=== PATIENT | female | born 1980 | race Caucasian/White ===

== ENCOUNTER 2023-09-26 16:43 | Emergency (ER) | payer OTHER ==
--- NOTE | 2023-09-26 16:48 | ED ---
General Adult HPI - General Stated complaint: right foot pain Time Seen by Provider: 09/26/23 16:47 Source: RN notes reviewed - History of Present Illness Initial comments: 43-year-old female who presents emergency Department with chief complaint of right foot pain she reports right foot pain for 1 day. She denies any known injury or trauma. She reports that can to the touch. Denies any injury or trauma. She also endorses she is residing and [place]. Is not concerned for his symptoms. Denies any known fevers, chills, numbness, tingling, weakness in the extremity. - Related Data Previous Rx's Medication Instructions Recorded Cephalexin [Keflex] 500 mg PO Q8HR 7 Days #21 cap 09/26/23 Allergies Allergy/AdvReac Type Severity Reaction Status Date / Time prochlorperazine Allergy Anaphylaxis Verified 09/26/23 17:11 [From Compazine] Review of Systems ROS Statement: Those systems with pertinent positive or pertinent negative responses have been documented in the HPI. ROS Other: All systems not noted in ROS Statement are negative. General Exam - General Exam Comments Initial Comments: Visual Physical Exam Vital signs reviewed General: Well-appearing, nontoxic, no acute distress. Head: Normocephalic, atraumatic Eyes: PERRLA, EOMI ENT: Airway patent Chest: Nonlabored breathing Skin: No visual rash, normal skin tone Neuro: Alert and oriented 3 Musculoskeletal: No gross abnormalities General: Alert, in no acute distress, he should afebrile Head: atraumatic normocephalic. Eyes PERRL, EOMI intact, mucous membranes moist Respiratory: Lungs clear to auscultation bilaterally Cardiovascular: Heart rate regular rate and rhythm Abdominal: Soft without guarding or rebound Extremities: Normal inspection with full range of motion and normal capillary re fill, right foot with generalized mild edema., No erythema. 2+ DP and PT pulses. No crepitus noted. Limited range of motion secondary to pain. Distal neurovascular intact. Neuroogic: alert and oriented 3, CN II-XII intact, able to ambulate with steady gait Skin: warm dry and intact with normal color Course Vital Signs 09/26/23 17:08 Temperature 98.4 F Pulse Rate 85 Respiratory 16 Rate Blood Pressure 146/54 O2 Sat by Pulse 98 Oximetry Medical Decision Making - Medical Decision Making I performed the quick note portion of this exam, verbal signature Jaqueline Bravo PA-C Was pt. sent in by a medical professional or institution ([facility], [facility], urgent care, hospital, or long term...) When possible be specific @ -[No] Did you speak to anyone other than the patient for history (EMS, parent, family, police, friend...)? What history was obtained from this source @ -[No] Did you review nursing and triage notes (agree or disagree)? Why? @ -[I reviewed and agree with nursing and triage notes] Were old charts reviewed (outside hosp., previous admission, EMS record, old EKG, old radiological studies, urgent care reports/EKG's, long term records)? Report findings @ -[No old charts were reviewed] Differential Diagnosis (chest pain, altered mental status, abdominal pain women, abdominal pain men, vaginal bleeding, weakness, fever, dyspnea, syncope, headache, dizziness, GI bleed, back pain, seizure, CVA, palpatations, mental health, musculoskeletal)? @ -[not applicable] EKG interpreted by me (3pts min.). @ -[As above] X-rays interpreted by me (1pt min.). @ -X-rays negative for any fracture dislocation or subcutaneous gas CT interpreted by me (1pt min.). @ -[None done] U/S interpreted by me (1pt. min.). @ -[None done] What testing was considered but not performed or refused? (CT, X-rays, U/S, labs)? Why? @ -[None] What meds were considered but not given or refused? Why? @ -[None] Did you discuss the management of the patient with other professionals (professionals i.e. [facility], [facility], lab, RT, psych nurse, social work case manager, spar machine operator helper, teacher, labor relations officer, case management specialist)? Give summary @ -[No] Was smoking cessation discussed for >3mins.? @ -[No] Was critical care preformed (if so, how long)? @ -[No] Were there social determinants of health that impacted care today? How? (Homelessness, low income, unemployed, alcoholism, drug addiction, transportation, low edu. Level, literacy, decrease access to med. care, alf, rehab)? @ -[No] Was there de-escalation of care discussed even if they declined (Discuss DNR or withdrawal of care, Hospice)? DNR status @ -[No] What co-morbidities impacted this encounter? (DM, HTN, Smoking, COPD, CAD, Cancer, CVA, ARF, Chemo, Hep., AIDS, mental health diagnosis, sleep apnea, morbid obesity)? @ -[None] Was patient admitted / discharged? Hospital course, mention meds given and route, prescriptions, significant lab abnormalities, going to OR and other pertinent info. @ -Discharged. 43-year-old female who presents the emergency department with right foot pain. Patient had thorough history and physical performed. Physical exam reveals mild edema to the right foot. Otherwise unremarkable. 2+ DP/PT pulses. Patient had laboratory and x-rays performed which were unremarkable. Patient provided Keflex upon discharge. Return precautions discussed at length. Discharged in stable condition. Case is discussed with Dr. Moreno, [facility] who agrees with plan of care Undiagnosed new problem with uncertain prognosis? @ -[No] Drug Therapy requiring intensive monitoring for toxicity (Heparin, Nitro, Insulin, Cardizem)? @ -[No] Were any procedures done? @ -[No] Diagnosis/symptom? @ -Right Foot Pain Vs. Cellulitis Acute, or Chronic, or Acute on Chronic? @ -Acute Uncomplicated (without systemic symptoms) or Complicated (systemic symptoms)? @ -Uncomplicated Side effects of treatment? @ -[No] Exacerbation, Progression, or Severe Exacerbation? @ -[No] Poses a threat to life or bodily function? How? (Chest pain, USA, ND, pneumonia, PE, COPD, DKA, ARF, appy, cholecystitis, CVA, Diverticulitis, Homicidal, Suicidal, threat to staff... and all critical care pts) @ Low likelihood - Lab Data Result diagrams: 09/26/23 17:19 09/26/23 17:19 Lab Results 09/26/23 09/26/23 Range/Units 17:19 17:19 WBC 14.6 H (3.8-10.6) k/uL RBC 4.33 (3.80-5.40) m/uL Hgb 13.3 (11.4-16.0) gm/dL Hct 39.4 (34.0-46.0) % MCV 91.0 (80.0-100.0) fL MCH 30.7 (25.0-35.0) pg MCHC 33.8 (31.0-37.0) g/dL RDW 13.2 (11.5-15.5) % Plt Count 264 (150-450) k/uL MPV 7.8 Neutrophils % 77 % Lymphocytes % 16 % Monocytes % 4 % Eosinophils % 2 % Basophils % 0 % Neutrophils # 11.3 H (1.3-7.7) k/uL Lymphocytes # 2.3 (1.0-4.8) k/uL Monocytes # 0.6 (0-1.0) k/uL Eosinophils # 0.2 (0-0.7) k/uL Basophils # 0.0 (0-0.2) k/uL Sodium 139 (137-145) mmol/L Potassium 4.2 (3.5-5.1) mmol/L Chloride 104 (98-107) mmol/L Carbon Dioxide 24 (22-30) mmol/L Anion Gap 11 mmol/L BUN 11 (7-17) mg/dL Creatinine 0.63 (0.52-1.04) mg/dL Est GFR (CKD-EPI)AfAm >90 (>60 ml/min/1.73 sqM) Est GFR (CKD-EPI)NonAf >90 (>60 ml/min/1.73 sqM) Glucose 110 H (74-99) mg/dL Calcium 8.8 (8.4-10.2) mg/dL Total Bilirubin 0.3 (0.2-1.3) mg/dL AST 20 (14-36) U/L ALT 19 (4-34) U/L Alkaline Phosphatase 83 (38-126) U/L Total Protein 6.5 (6.3-8.2) g/dL Albumin 3.9 (3.5-5.0) g/dL Disposition Clinical Impression: Right foot pain Disposition: HOME SELF-CARE Condition: Stable Additional Instructions: Please take antibiotics as prescribed Please take tylenol or motrin for pain Elevate when able Return to the ER if worsening redness, pain or fever develop Prescriptions: Cephalexin [Keflex] 500 mg PO Q8HR 7 Days #21 cap Is patient prescribed a controlled substance at d/c from ED?: No Referrals: Nonstaff,Physician [Primary Care Provider] - 1-2 days Forms: PH Area PCPs Time of Disposition: 18:45
[2023-09-26 17:28] LABS: Basophils % (A) 0 %; Eosinophils # (A) 0.2 k/uL (0-0.7); Eosinophils % (A) 2 %; HCT 39.4 % (34.0-46.0); HGB 13.3 gm/dL (11.4-16.0); Lymphocytes # (A) 2.3 k/uL (1.0-4.8); Lymphocytes % (A) 16 %; MCH 30.7 pg (25.0-35.0); MCHC 33.8 g/dL (31.0-37.0); Mean Platelet Volume 7.8; Monocytes # (A) 0.6 k/uL (0-1.0); Monocytes % (A) 4 %; Neutrophils # (A) 11.3 k/uL (1.3-7.7); Neutrophils % (A) 77 %; Platelet Count 264 k/uL (150-450); RBC 4.33 m/uL (3.80-5.40); RDW 13.2 % (11.5-15.5); WBC 14.6 k/uL (3.8-10.6)
[2023-09-26 17:37] VITALS: BP 146/54; PULSE 85; RESP 16; TEMP 98.4
[2023-09-26 17:37] LABS: ALT 19 U/L (4-34); AST 20 U/L (14-36); African American GFR (CKD) >90 (>60 ml/min/1.73 sqM); Albumin 3.9 g/dL (3.5-5.0); Alkaline Phosphatase 83 U/L (38-126); Anion Gap 11 mmol/L; Blood Urea Nitrogen 11 mg/dL (7-17); Calcium 8.8 mg/dL (8.4-10.2); Carbon Dioxide 24 mmol/L (22-30); Chloride 104 mmol/L (98-107); Glucose 110 mg/dL (74-99); Non-African American GFR(CKD) >90 (>60 ml/min/1.73 sqM); Potassium 4.2 mmol/L (3.5-5.1); Sodium 139 mmol/L (137-145); Total Bilirubin 0.3 mg/dL (0.2-1.3); Total Protein 6.5 g/dL (6.3-8.2)
--- NOTE | 2023-09-26 18:27 | XR ---
EXAMINATION TYPE: XR foot complete RT DATE OF EXAM: 09/26/2023 6:15 PM CLINICAL INDICATION:Female, 43 years old with history of right foot pain; COMPARISON: None TECHNIQUE: XR foot complete RT examined in the AP, oblique, and lateral projections. FINDINGS: No evidence of any acute osseous pathology. No evidence of soft tissue swelling. Joints are preserve d. Calcaneal plantar spurring. Multifocal degeneration changes with osteophyte formation and joint sp augie narrowing. IMPRESSION: 1. No evidence of acute fracture. 2. Mild multifocal osteoarthrosis.
[2023-09-26] MEDS ORDERED: CEPHALEXIN 500 MG CAP PO STA (18:42)
== END 2023-09-26 19:01 | disposition home or self-care (01) ==
LOC: EC 16:43
DX: M79.671 Pain in right foot (principal); Z88.9 Allergy status to unspecified drugs, medicaments and biological substances
CPT/HCPCS: 36415; 80053; 85025; 99283